=== PATIENT | female | born 1965 ===

== ENCOUNTER 2020-09-26 10:55 | Inpatient (IN) | payer BC, MEDICAID ==
[~2020-09-26] VITALS: Ht 157.5 cm; Wt 63.8 kg
[2020-09-26] MEDS ORDERED: ONDANSETRON ODT 4 MG PO PRN (11:30)
[2020-09-26] MEDS ORDERED: BISACODYL 10 MG SUPP PR PRN (11:30)
[2020-09-26] MEDS ORDERED: ACETAMINOPHEN 325 MG TABLET PO PRN (11:30)
[2020-09-26] MEDS ORDERED: DOCUSATE 100 MG CAPSULE PO PRN (11:30)
[2020-09-26] MEDS ORDERED: POLYETHYLENE GLYCOL 17 GM PACKET PO PRN (11:30)
[2020-09-26] MEDS ORDERED: HALOPERIDOL 5 MG TABLET PO PRN (13:30)
[2020-09-26] MEDS ORDERED: HALOPERIDOL 5 MG/ML IM PRN (13:30)
[2020-09-26] MEDS ORDERED: LORazepam 2 MG/ML, 1ML IM PRN (13:30)
[2020-09-26] MEDS ORDERED: PLEASE ENTER HEIGHT AND WEIGHT MC SCH (14:30)
[2020-09-26] MEDS ORDERED: PLEASE ENTER ALLERGIES MC SCH (14:30)
[2020-09-26 14:48] VITALS: BP 115/71
[2020-09-26] MEDS ORDERED: DESV50TA PO (15:25)
[2020-09-26 19:37] VITALS: BP 99/62
[2020-09-27 07:19] VITALS: BP 98/61
[2020-09-27 08:27] LABS: ALANINE AMINOTRANSFERASE 20 U/L (12-78); ALBUMIN 3.5 g/dL (3.4-5.0); ANION GAP 8 mmol/L (5-15); CHLORIDE 113 mmol/L (98-107); CHOLESTEROL, TOTAL 191 mg/dL (140-239); CREATININE 0.67 mg/dL (0.55-1.02)
[2020-09-27 08:30] LABS: ALKALINE PHOSPHATASE 66 U/L (45-117); BILIRUBIN,TOTAL 0.5 mg/dL (0.2-1.0); CHOL/HDL RATIO 4.1; HDL CHOL % 25 % (28-40); HDL CHOLESTEROL (DIRECT) 47 mg/dL (40-60); LDL CHOLESTEROL,CALCULATED 124 mg/dL (54-169); LDL/HDL RATIO 2.6 (0.5-3.0); TOTAL PROTEIN 6.8 g/dL (6.4-8.2); TRIGLYCERIDES 98 mg/dL (50-200); VLDL CHOLESTEROL 20 mg/dL (0-25)
[2020-09-27] MEDS: LORazepam 1MG TABLET PO PRN (08:45)
[2020-09-27 10:39] LABS: BASOPHILS % (AUTO) 1 % (0-1); EOSINOPHILS % (AUTO) 1 % (1-7); LYMPHOCYTES % (AUTO) 18 % (22-44); MEAN CORPUSCULAR HEMOGLOBIN 31.8 pg (27.0-34.8); MEAN CORPUSCULAR HGB CONC 33.8 g/dL (32.4-35.8); MEAN PLATELET VOLUME 9.1 fL (7.4-10.4); MONOCYTES % (AUTO) 6 % (2-9); NEUTROPHILS % (AUTO) 75 % (42-75); PLATELET COUNT 206 x10^3/uL (130-400); RED BLOOD COUNT 4.53 x10^6/uL (3.82-5.3); RED CELL DISTRIBUTION WIDTH 13.6 % (9.6-15.2)
[2020-09-27 11:25] LABS: MD SCAN
[2020-09-27] MEDS: VENLAFAXINE XR 37.5MG CAP.ER.24H PO SCH (16:44)
[2020-09-27 19:47] VITALS: BP 87/54
[2020-09-28 07:13] VITALS: BP 95/60
[2020-09-28] MEDS: VENLAFAXINE XR 37.5MG CAP.ER.24H PO SCH (09:00)
[2020-09-28 19:48] VITALS: BP 101/63
[2020-09-29 07:13] VITALS: BP 109/67
[2020-09-29] MEDS: VENLAFAXINE 75 MG CAP ER PO SCH (08:28)
[2020-09-29] MEDS: LORazepam 1MG TABLET PO PRN ×2 (09:16→15:52)
[2020-09-29] MEDS ORDERED: VENL75CA6 PO (14:21)
[2020-09-29 19:30] VITALS: BP 120/60
[2020-09-30 07:29] VITALS: BP 101/70
[2020-09-30] MEDS: VENLAFAXINE 75 MG CAP ER PO SCH (08:21)
== END 2020-09-30 14:00 | disposition home or self-care (01) | DRG 751 ==
LOC: 3E 14:13
PROVIDERS: ADMIT Psychiatry & Neurology Psychosomatic Medicine; ATTEND Psychiatry & Neurology Psychosomatic Medicine
DX: F33.2 Major depressive disorder, recurrent severe without psychotic features (principal); F12.10 Cannabis abuse, uncomplicated; E73.9 Lactose intolerance, unspecified; F17.200 Nicotine dependence, unspecified, uncomplicated; K90.0 Celiac disease; Z56.0 Unemployment, unspecified; Z88.5 Allergy status to narcotic agent; Z88.2 Allergy status to sulfonamides
CPT/HCPCS: 71045; 80053; 80061; 83735; 85025; 93005